=== PATIENT | male | born 1965 ===

== ENCOUNTER 2019-06-03 13:11 | Outpatient (CLI) | payer MEDICAID ==
--- NOTE | 2019-06-03 16:45 | Consultation ---
DATE OF CONSULTATION: 06/03/2019 CONSULTING PHYSICIAN: Neftali Pereyra M.D. CHIEF COMPLAINT: Referral for screening colonoscopy. PAST MEDICAL HISTORY: None. PAST SURGICAL HISTORY: Hernia repair. MEDICATIONS: Vitamins. FAMILY HISTORY: Mother had breast cancer and diabetes. SOCIAL HISTORY: The patient drinks socially. Denies any tobacco or IV drug abuse. ALLERGIES: No known allergy. REVIEW OF SYSTEMS: A 10-point review of systems was performed and was negative. PHYSICAL EXAMINATION: GENERAL: A well-developed male, in no acute distress. HEENT: Normocephalic and atraumatic. Sclerae anicteric. NECK: Supple. No evidence of obvious lymphadenopathy. CARDIOVASCULAR: Regular rate and rhythm. Plus S1 and S2. No obvious murmur. LUNGS: Clear to auscultation bilaterally. ABDOMEN: Positive bowel sounds. Soft and nontender. No rebound. No guarding. No peritoneal sign. EXTREMITIES: No cyanosis, no clubbing, no edema. ASSESSMENT AND PLAN: This is a 54-year-man with need for screening colonoscopy. The patient was given the instruction and prep for the colonoscopy. We will try to get authorization and as soon as we get authorization, schedule him. Neftali Pereyra M.D. DR: SYLVAIN JOB#: [id number] CC:
== END 2019-06-03 15:11 | disposition home or self-care (01) ==
LOC: PAN 13:11
DX: Z12.11 Encounter for screening for malignant neoplasm of colon (principal)